=== PATIENT | male | born 1975 | race Caucasian/White ===

== ENCOUNTER 2020-09-06 12:17 | Emergency (ER) | payer OTHER ==
[~2020-09-06] VITALS: Ht 170.2 cm; Wt 99.8 kg
[~2020-09-06 12:17] MED LIST: ALBU0.0912 INH
[2020-09-06 12:20] VITALS: BP 162/86
--- NOTE | 2020-09-06 12:20 | NUR ---
PT PLACED IN W/C AND SENT TO ER LOBBY TO WAIT FOR MSE.
--- NOTE | 2020-09-06 12:30 | NUR ---
45[facility] foot and lower leg pain and sores. Pt states he has been walking without shoes and has open lesions to both lower extremities. No drainage noted at this time. Patient states he is homeless. c/o 05/02 pain.
[2020-09-06 13:37] VITALS: BP 162/86
--- NOTE | 2020-09-06 13:37 | NUR ---
Patient discharged with v/s stable. Written and verbal after care instructions given and explained. Patient alert, oriented and verbalized understanding of instructions. Ambulatory with steady gait. All questions addressed prior to discharge. ID band removed. Patient advised to follow up with PMD. Rx of Bactrim DS 800mg-160mg, Keflex 500mg, Bacitractin 500unit/g topical given. Patient educated on indication of medication including possible reaction and side effects. Opportunity to ask questions provided and answered.
--- NOTE | 2020-09-06 13:43 | NUR ---
Security called to ER lobby to escort patient out of ER lobby.
== END 2020-09-06 13:37 | disposition home or self-care (01) ==
LOC: MED 12:17
DX: L03.116 Cellulitis of left lower limb (principal); L03.115 Cellulitis of right lower limb; J45.909 Unspecified asthma, uncomplicated; I10 Essential (primary) hypertension; Z88.8 Allergy status to other drugs, medicaments and biological substances
CPT/HCPCS: 99283

== ENCOUNTER 2020-09-06 17:46 | Emergency (ER) | payer OTHER ==
[~2020-09-06] VITALS: Ht 170.2 cm; Wt 99.8 kg
[2020-09-06 17:46] VITALS: BP 157/59
--- NOTE | 2020-09-06 17:48 | NUR ---
BIBA TAKEN TO LOBBY
--- NOTE | 2020-09-06 17:51 | NUR ---
45 Y/O MALE BIB[place] [facility] C/O BILATERAL LEG PAIN PROVOKED BY AMBULATION. PT. PT ABLE TO AMBULATE WITHOUT DIFFICULTY.
[2020-09-06] MEDS ORDERED: cefTRIAXone 1,000 MG in LIDOCAINE MPF 1% 2.1 ML IM ONE (18:05)
[2020-09-06] MEDS ORDERED: cefTRIAXone 1,000 MG VIAL ONE (18:14)
[2020-09-06] MEDS ORDERED: LIDOCAINE MPF 1% 5 ML ONE (18:14)
[2020-09-06 18:29] VITALS: BP 157/59
--- NOTE | 2020-09-06 18:29 | NUR ---
Patient discharged with v/s stable. Written and verbal after care instructions given and explained. Patient alert, oriented and verbalized understanding of instructions. Ambulatory with steady gait. All questions addressed prior to discharge. ID band removed. Patient advised to follow up with PMD. Rx of BACTRIM , KEFLEX given. Patient educated on indication of medication including possible reaction and side effects. Opportunity to ask questions provided and answered.
== END 2020-09-06 18:29 | disposition home or self-care (01) ==
LOC: MED 17:46
DX: L03.115 Cellulitis of right lower limb (principal); J45.909 Unspecified asthma, uncomplicated; I10 Essential (primary) hypertension; Z88.8 Allergy status to other drugs, medicaments and biological substances
CPT/HCPCS: 96372; 99283; J0696; J2001

== ENCOUNTER 2020-09-08 04:40 | Emergency (ER) | payer OTHER ==
[~2020-09-08] VITALS: Ht 167.6 cm; Wt 92.5 kg
[2020-09-08 04:56] VITALS: BP 149/88
--- NOTE | 2020-09-08 05:09 | NUR ---
PT TAKEN TO BED 4
--- NOTE | 2020-09-08 05:12 | NUR ---
Dr. Ferrera examining patient.
[2020-09-08] MEDS ORDERED: OLANZapine 5 MG ODT PO ONE ×2 (05:15→21:00)
--- NOTE | 2020-09-08 05:15 | NUR ---
45 Y/O MALE PRESENTED TO ED C/O A SORE THROAT X 2 DAYS. WAS SEEN HERE 09/06 AND PRESCRIBED MEDS. PT STATES THAT THEY DIDIN'T HELP. NO REDNESS OR SWELLING TO THE PTS THROAT. PT IS TALKING TO HIMSELF. PT DENIES N/V/DIARRHEA/FEVER AND SOB. PT IS STATING THAT HE WANTS TO KILL HIMSELF AND IS HEARING MORE VOICES IN HIS HEAD. ALLERGY - LISINOPRIL HX - HTN, SCHIZOPHRENIA, ASTHMA, HTN
--- NOTE | 2020-09-08 05:15 | NUR ---
PT PROVIDED WITH 2 CARTONS OF MILK AND CUP OF WATER. STATED HE WAS UNABLE TO PROVIDE UA AT THIS TIME
--- NOTE | 2020-09-08 05:24 | NUR ---
X-Ray at bedside.
--- NOTE | 2020-09-08 05:35 | NUR ---
ATTEMPTED EKG, PT COULD NOT SIT STILL DESPITE REPEATED REQUESTS, DID NOT COOPERATE, UNABLE TO OBTAIN EKG
--- NOTE | 2020-09-08 05:36 | NUR ---
NOVEL AND SIL SWABS COLLECTED AND TAKEN TO LAB
--- NOTE | 2020-09-08 05:52 | NUR ---
PT UNABLE TO PROVIDE URINE SPECIMEN AT THIS TIME.
--- NOTE | 2020-09-08 05:52 | NUR ---
IV ESTABLISHED AND LABS DRAWN. ALL LABS WALKED TO LAB
[2020-09-08 06:12] LABS: ALBUMIN 3.2 g/dL (3.4-5.0); ASPARTATE AMINOTRANSFERASE 32 U/L (15-37); CHLORIDE 101 mmol/L (98-107); CREATININE 0.7 mg/dL (0.6-1.3); GFR ARICAN-AMERICAN 157 mL/min (>90); GLUCOSE 115 mg/dL (74-106); SODIUM SERUM 137 mmol/L (136-145); TOTAL BILIRUBIN 0.4 mg/dL (0.0-1.0); UREA NITROGEN, BLOOD 8 mg/dL (7-18)
[2020-09-08 06:14] LABS: SALICYLATE < 2.8 mg/dL (2.8-20.0)
[2020-09-08 06:15] LABS: ACETAMINOPHEN < 0.5 ug/ml (10-30)
[2020-09-08 06:20] LABS: BASOPHILS % (AUTO) 0.6 % (0.0-2.0); EOSINOPHILS % (AUTO) 0.6 % (0.0-4.0); HEMATOCRIT 41.5 % (36-52); LYMPHOCYTES # (AUTO) 1.5 K/uL (2.0-11.5); LYMPHOCYTES % (AUTO) 20.6 % (20.5-51.1); MEAN CORPUSCULAR HEMOGLOBIN 28 pg (27-31); MEAN CORPUSCULAR HGB CONC 34 g/dL (33-37); MEAN CORPUSCULAR VOLUME 81.6 fL (80-94); MONOCYTES % (AUTO) 13.3 % (1.7-9.3); NEUTROPHILS # (AUTO) 4.8 K/uL (1.8-7.7); NEUTROPHILS % (AUTO) 64.9 % (42.2-75.2); PLATELET COUNT (AUTO) 285 K/uL (140-450); RED BLOOD CELL COUNT(AUTO) 5.08 MIL/uL (4.20-6.10); RED CELL DISTRIBUTION WIDTH 15.4 % (11.6-13.7); WHITE BLOOD COUNT (AUTO) 7.4 K/uL (4.8-10.8)
--- NOTE | 2020-09-08 06:28 | NUR ---
EKG PERFORMED AT BEDSIDE. EKG READS SINUS RHYTHM @ 74
--- NOTE | 2020-09-08 06:28 | NUR ---
EMT AT BEDSIDE PERFORMING REPEAT EKG
--- NOTE | 2020-09-08 06:35 | NUR ---
TELEPSYCH TAKEN TO BEDSIDE
[2020-09-08 06:36] LABS: CKMB RELATIVE INDEX 0.9 (0.0-2.5); CREATINE KINASE MB 4.7 ng/mL (0-3.6)
--- NOTE | 2020-09-08 06:50 | NUR ---
PT UNABLE TO PROVIDE URINE AT THIS TIME
--- NOTE | 2020-09-08 07:15 | NUR ---
REPORT GIVEN TO KURT LANDA FOR TRANSFER OF CARE AT THIS TIME
--- NOTE | 2020-09-08 07:16 | NUR ---
RECEIVED ENDORSEMENT FROM MEDICAL ANTHROPOLOGY DIRECTOR, ASLEEP ON BED, BREATHING SPONTABEOUSLY AT ROOM AIR, NOT IN DISTRESS NOTED. CHIEF COMPLAINTS OF HALLUCINATION WITH SUICIDAL IDEATION. SAFETY MEASURES IN PLACE AND CONTINUE MONITOR. INTIALS VITAL SIGNS, STABLE
--- NOTE | 2020-09-08 09:04 | NUR ---
ASLEEP, NO COMPLAINTS MADE
[2020-09-08 10:08] LABS: APPEARANCE,URINE CLEAR (CLEAR); BILIRUBIN,URINE 1+ (NEGATIVE); BLOOD, URINE NEGATIVE (NEGATIVE); COLOR,URINE YELLOW (YELLOW); LEUKOCYTE ESTERASE ,URINE NEGATIVE (NEGATIVE); NITRITE, URINE NEGATIVE (NEGATIVE); PH,URINE 7.5 (5.0-9.0); UGLUCOSE NEGATIVE (NEGATIVE)
[2020-09-08] MEDS ORDERED: POTASSIUM CHLORIDE 10 MEQ TABER PO ONE (10:10)
[2020-09-08 11:02] LABS: RBC,URINE NONE SEEN /HPF (0-5); WBC,URINE 0-5 /HPF (0-5)
[2020-09-08 11:08] LABS: BARBITURATE, URINE NEGATIVE ng/ml (NEG <=200); BENZODIAZEPINE, URINE NEGATIVE ng/mL (NEG <=200)
[2020-09-08 11:09] LABS: CANNABINOID, URINE NEGATIVE ng/mL (NEG <=50); COCAINE, URINE NEGATIVE ng/mL (NEG <=300); OPIATE, URINE NEGATIVE ng/mL (NEG <=2000); PHENCYCLIDINE SCREEN,URINE NEGATIVE ng/mL (NEG <=25)
--- NOTE | 2020-09-08 12:05 | NUR ---
SEEN AND EXAMINED BY ANDRESSA VASQUEZ. ORDERED FOR 2190 HOLD
--- NOTE | 2020-09-08 12:09 | NUR ---
LUNCH SERVED, ABLE TO FEED HIMSELF SND CONSUMED 100% OF SERVED
--- NOTE | 2020-09-08 14:04 | NUR ---
FULLY AWAKE AND ALERT, VANILLA PUDDING SERVED. CALMED AND NO SIGNS OF HALLUCINATION
--- NOTE | 2020-09-08 16:39 | NUR ---
TO TOILET AMBULATORY, VOIDED FREELY AND BACK TO BED. CALMED
--- NOTE | 2020-09-08 18:35 | NUR ---
APPARENTLY AGITATED AND THROWING FOOD TRAYS, DR. LORENZ AT BESIDE AND ORDERED TO GIVEN ATIVAN AND HALDOL
[2020-09-08] MEDS ORDERED: LORazepam 2 MG/ML VIAL ONE (18:38)
[2020-09-08] MEDS ORDERED: HALOPERIDOL IM 5 MG/ML VIAL ONE (18:38)
[2020-09-08] MEDS ORDERED: LORazepam 2 MG/ML VIAL IM ONE (18:40)
[2020-09-08] MEDS ORDERED: HALOPERIDOL IM 5 MG/ML VIAL IM ONE (18:40)
--- NOTE | 2020-09-08 19:21 | NUR ---
PT WAS FOUND ASLEEP IN SEMI-FOWELER'S POSITION IN BED. PT HAS VISIBLE RISE AND FALL UPON RESPIRATION. BED LOCKED IN LOWEST POSITION WITH 2 SIDE RAILS UP FOR SAFETY. WILL CONTINUE TO MONITOR.
--- NOTE | 2020-09-08 19:21 | NUR ---
RECEIVED TRANSFER OF CARE REPORT FROM JENNIFER HICKS FOR CONTINUATION OF CARE.
--- NOTE | 2020-09-08 19:21 | NUR ---
ENDORSED TO [facility] IN STABLE CONDITION FOR CONTINUITY OF CARE.
--- NOTE | 2020-09-08 23:21 | NUR ---
PT WAS FOUND ASLEEP ON LEFT SIDE IN BED. PT HAS VISIBLE RISE AND FALL UPON RESPIRATION. BED LOCKED IN LOWEST POSITION WITH 2 SIDE RAILS UP FOR SAFETY. WILL CONTINUE TO MONITOR.
--- NOTE | 2020-09-09 03:21 | NUR ---
PT WAS FOUND ASLEEP ON RIGHT SIDE IN BED. PT HAS VISIBLE RISE AND FALL UPON RESPIRATION. BED LOCKED IN LOWEST POSITION WITH 2 SIDE RAILS UP FOR SAFETY. WILL CONTINUE TO MONITOR.
--- NOTE | 2020-09-09 04:41 | NUR ---
Pt ambulated to restroom w/ steady gait.
--- NOTE | 2020-09-09 04:43 | NUR ---
PT AMBULATED BACK TO BED FROM RESTROOM.
--- NOTE | 2020-09-09 06:56 | NUR ---
patient ambulated to restroom
--- NOTE | 2020-09-09 06:58 | NUR ---
patient ambulated back to bed 5
--- NOTE | 2020-09-09 07:20 | NUR ---
TRANSFER OF CARE REPORT PROVIDED TO LATASHA HICKS.
--- NOTE | 2020-09-09 07:21 | NUR ---
RECEIVED REPORT FROM MAGO HICKS. TRANSFER OF CARE AT THIS TIME.
--- NOTE | 2020-09-09 07:35 | NUR ---
PT SITTING IN BED WITH EVEN AND UNLABORED RESPIRATIONS OBSERVED. PT IS CALM AND COOPERATIVE. PT ASKED/GIVEN JELLO, WAITING ON BREAKFAST TRAY.
--- NOTE | 2020-09-09 07:50 | NUR ---
PT AMBULATED TO RESTROOM WITH STEADY GAIT.
--- NOTE | 2020-09-09 07:51 | NUR ---
Pt ambulated to restroom with a steady gait, asked to not close door.
--- NOTE | 2020-09-09 08:06 | NUR ---
Pt provided with breakfast tray, HOB elevated, calm and cooperative.
[2020-09-09] MEDS ORDERED: OLANZapine 5 MG ODT SL ONE (08:15)
[2020-09-09] MEDS ORDERED: HALOPERIDOL IM 5 MG/ML VIAL IM ONE (08:30)
[2020-09-09] MEDS ORDERED: LORazepam 2 MG/ML VIAL IM ONE (08:30)
[2020-09-09] MEDS ORDERED: HALOPERIDOL IM 5 MG/ML VIAL ONE (08:32)
[2020-09-09] MEDS ORDERED: LORazepam 2 MG/ML VIAL ONE (08:32)
--- NOTE | 2020-09-09 08:34 | NUR ---
Pt pressed code blue button on wall, yelling out at staff. Dr. Ibrahim made aware.
--- NOTE | 2020-09-09 08:37 | NUR ---
Pt in 4 point restraints and medicated with 5mg Haldol, and 2mg Ativan IM.
--- NOTE | 2020-09-09 09:05 | NUR ---
Pt sleeping, restraints removed at this time.
--- NOTE | 2020-09-09 09:23 | NUR ---
Gave report to KURT Sharpe from [facility]. [address] accepting physician Dr. Estrada. Call unit RN for report [phone] in 15 minutes.
--- NOTE | 2020-09-09 09:46 | NUR ---
PT IS SLEEPING IN BED WITH EVEN AND UNLABORED RESPIRATIONS OBSERVED.
--- NOTE | 2020-09-09 10:09 | NUR ---
CALLED AND GAVE REPORT TO ZEKE HICKS FOR TRANSFER TO [facility] ROOM 112A UNDER THE CARE OF DR. AVALOS. LESLYE FOR LOSS CONTROL MANAGER [id number]
--- NOTE | 2020-09-09 10:35 | NUR ---
PT WAS ROCKING THE BED AND YELLING AT SELF. PT PLACED IN [place] POSITION WITH BLANKETS. PT IS NOW CALM AND COOPERATIVE WITH EVEN AND UNLABORED RESPIRATIONS OBSERVED
[2020-09-09] MEDS ORDERED: CLONIDINE HYDROCHLORIDE 0.1 MG TAB PO ONE (11:40)
--- NOTE | 2020-09-09 11:40 | NUR ---
MEDICS HERE FOR TRANSPORT TO [facility]. MEDICS TOOK PT BP:146/99 THEN 154/86 AND SAID FACILITY WILL NOT ACCEPT WITH ELEVATED BP. DR JOSEPH MADE AWARE. CONTACTED RECEIVING RN- ZEKE HICKS TO INFORM HER. DR JOSEPH PRESCRIBED CLONIDINE 0.1MG PO AND ADMINISTERED.
--- NOTE | 2020-09-09 12:02 | NUR ---
Patient to be transferred to [facility]. Is being transferred due to HIGHER LEVEL OF CARE. Receiving facility has accepting physician and available space. ER physician has signed transfer form. Patient or responsible green party has agreed to transfer and signed form. Patient belongings inventoried and will be sent with patient. Copy of nursing notes, lab reports, EKG, Physicians Orders and X-rays to be sent with patient. Report called to ZEKE HICKS at receiving facility. [facility] ambulance service has been called for transfer. ETA is 30.
[2020-09-09 12:06] VITALS: BP 148/99
== END 2020-09-09 12:02 ==
LOC: MED 04:40
DX: R45.851 Suicidal ideations (principal); Z20.822 Contact with and (suspected) exposure to COVID-19; F20.9 Schizophrenia, unspecified; F29 Unspecified psychosis not due to a substance or known physiological condition; J45.909 Unspecified asthma, uncomplicated; I10 Essential (primary) hypertension; F17.200 Nicotine dependence, unspecified, uncomplicated; Z79.899 Other long term (current) drug therapy; Z88.8 Allergy status to other drugs, medicaments and biological substances
CPT/HCPCS: 71045; 80053; 80305; 81001; 82550; 82553; 85025; 87086; 87426; 93005; 96372; 99285; G0480; G0482; J1630; J2060; U0003